=== PATIENT | female | born 2000 | race Caucasian/White ===

== ENCOUNTER 2022-10-22 03:09 | Observation (INO) ==
[2022-10-22 04:12] LABS: Basophils # (auto) 0.07 K/uL (0-0.2); Basophils % (auto) 0.6 %; Eosinophils # (auto) 0.02 K/uL (0-0.50); Eosinophils % (auto) 0.2 %; Hematocrit (blood only) 42.5 % (34.1-44.9); Immature Granulocytes # (auto) 0.03 K/uL (0.00-0.02); Immature Granulocytes % (auto) 0.3 %; Lymphocytes # (auto) 2.23 K/uL (1.2-3.4); Lymphocytes % (auto) 19.2 %; Mean Corpuscular Hemoglobin 31.4 pg (25.0-34.0); Mean Corpuscular Hgb Conc 35.3 g/dL (32.0-36.0); Mean Corpuscular Volume 89.1 fL (80.0-100.0); Mean Platelet Volume 11.9 fL (9.4-12.3); Monocytes # (auto) 0.69 K/uL (0.24-0.82); Monocytes % (auto) 5.9 %; Neutrophils # (auto) 8.57 K/uL (1.4-6.5); Neutrophils % (auto) 73.8 %; Platelet Count 294 K/uL (130-400); RDW Coefficient of Variation 11.1 % (11.5-14.5); RDW Standard Deviation 35.8 fL (36.4-46.3); Red Blood Count 4.77 M/uL (3.93-5.22); White Blood Count 11.61 K/ul (4.8-10.8)
[2022-10-22 04:28] LABS: Pregnancy Test, Serum Negative (Negative)
[2022-10-22 04:46] LABS: Troponin I High Sensitivity < 2.3 pg/ml (0-14)
[2022-10-22] MEDS ORDERED: SODIUM CHLORIDE 0.9% 1000ML 1,000 ML IV ONE ×2 (04:53→06:52)
--- NOTE | 2022-10-22 04:56 | Emergency Department Note ---
History of Present Illness General Chief complaint: Overdose (Accidental) Stated complaint: SHAKING,RACING HEART,POSS TOOK TOO MUCH MEDICATION Time Seen by Provider: 10/22/22 03:58 Source: patient Mode of arrival: EMS Limitations: no limitations History of Present Illness Provider complaint: took extra effexor Maximum Pain Intensity: 6 This is a 21-year-old female presents emergency department due to concern for taking extra Effexor. Patient states she had increased stress because of nee ding to study for an exam and did not have a lot of time. She states she decided to take extra of her Effexor in order to induce ivette so that she could focus to study. She states she also drink 2 energy drinks additionally. She denies any other coingestions. Patient states she has history of bipolar disorder, anxiety, and depression. She denies any thoughts of suicide. Patient states she does see mental health professionals and is prescribed Effexor daily. Home Medications Medication Instructions Recorded Confirmed Type clonidine HCl 0.1 mg tablet 0.1 mg PO DAILY PRN Blood Pressure 10/22/22 10/22/22 History lamotrigine 150 mg tablet 150 mg PO DAILY 10/22/22 10/22/22 History (Lamictal) norgestimate 0.25 mg-ethinyl 1 tab PO DAILY 10/22/22 10/22/22 History estradiol 35 mcg tablet (Sheron) valacyclovir 1 gram tablet 1,000 mg PO DAILY 10/22/22 10/22/22 History (Valtrex) venlafaxine 75 mg tablet 75 mg PO DAILY 10/22/22 10/22/22 History Allergies Allergy/AdvReac Type Severity Reaction Status Date / Time No Known Allergies Allergy Unverified 10/22/22 07:32 Past Med/Surg History Social History Smoking Status: Never smoker Preferred Language: French Feels Safe at Home: Yes Review of Systems A total of 10 systems reviewed and were otherwise negative All systems reviewed & are unremarkable except as noted in HPI & below Physical Exam Vital Signs Vital Signs - 24 hr 10/22/22 03:17 10/22/22 03:38 10/22/22 03:39 Temperature 37.4 C Temperature Source Temporal Artery Scan Pulse Rate 141 H Pulse Rate [Apical] 117 H Respiratory Rate 18 17 Respiratory Effort / Characteristics Non-Labored Spontaneous Respiratory Depth Normal Normal Respiratory Pattern Regular Blood Pressure 130/84 Blood Pressure [Right Arm] 132/85 Blood Pressure Mean 99 Blood Pressure Mean [Right Arm] 100 Pulse Oximetry 98 98 99 Oxygen Delivery Method Room Air Room Air Room Air Sepsis Recent Fever Within 48 Hours No Sepsis New/Unexplained Change in Mental Status N/A Sepsis Action Taken by Nursing No Action Required 10/22/22 06:09 10/22/22 08:31 Temperature Temperature Source Pulse Rate Pulse Rate [Apical] 130 H 107 H Respiratory Rate 12 15 Respiratory Effort / Characteristics Non-Labored Spontaneous Non-Labored Spontaneous Respiratory Depth Normal Normal Respiratory Pattern Regular Blood Pressure Blood Pressure [Right Arm] 123/81 135/95 Blood Pressure Mean Blood Pressure Mean [Right Arm] 95 108 Pulse Oximetry 99 100 Oxygen Delivery Method Room Air Room Air Sepsis Recent Fever Within 48 Hours Sepsis New/Unexplained Change in Mental Status Sepsis Action Taken by Nursing GENERAL: alert, anxiousl appearing, well nourished, no distress, non-toxic EYE EXAM: normal conjunctiva, PERRL and EOM's grossly intact OROPHARYNX: no exudate, no erythema, lips, buccal mucosa, and tongue normal and mucous membranes are moist NECK: supple, no nuchal rigidity, no adenopathy, non-tender LUNGS: Clear to auscultation. Normal chest wall mechanics, no w/r/r HEART: no murmurs, S1 normal and S2 normal ABDOMEN: abdomen soft, non-tender, normo-active bowel sounds, no masses, no rebound or guarding. BACK: Back is symmetrical on inspection and there is no deformity, no midline tenderness, no CVA tenderness. SKIN: no rashes and no bruising UPPER EXTREMITIES: upper extremities are grossly normal. FROM, nml pulses b/l. LOWER EXTREMITIES: No pitting edema. FROM, nml pulses b/l. No evidence of clonus. NEURO EXAM: Normal sensorium, cranial nerves II-XII grossly intact, normal speech, no gross weakness of arms, no gross weakness of legs. No ataxia. Gross sensation intact. Course Course 0500: Discussed with Poison Control. 0936: Patient well-appearing, heart rate improved. Patient admits to increased stress, anxiety, and depression since returning to college from . She states over the course of this last week she has had minimal oral intake due to her increased stress as well as her increased depression. 0945: Case signed out to Dr. Rivera pending mental health evaluation as a precaution. Patient continued to deny SI to myself at bedside. She was given oral potassium repletion. Patient does have local mental health professionals whom she sees. Administered Medications Discontinued Medications Sodium Chloride (Nss 1000ml) 1,000 mls @ 999 mls/hr IV .Q1H1M ONE Stop: 10/22/22 05:53 Last Infusion: 10/22/22 06:20 Dose: 0 mls/hr Documented By: shoe turner: 10/22/22 05:00 Dose: 999 mls/hr Documented By: MED Sodium Chloride (Nss 1000ml) 1,000 mls @ 999 mls/hr IV .Q1H1M ONE Stop: 10/22/22 07:52 Last Infusion: 10/22/22 10:56 Dose: 0 mls/hr Documented By: Admin: 10/22/22 07:42 Dose: 999 mls/hr Documented By: AMS Lorazepam (Lorazepam 1 Mg/1 Ml Syr) 0.5 mg IV NOW STA; Protocol Stop: 10/22/22 06:53 Last Admin: 10/22/22 07:42 Dose: 0.5 mg Documented By: AMS Potassium Chloride (Potassium Chloride Crtab 20 Meq Tabcr) 40 meq PO NOW STA Stop: 10/22/22 09:41 Last Admin: 10/22/22 10:56 Dose: 40 meq Documented By: AMS Medical Decision Making Differential Diagnosis Overdose, toxicologic, infection, hypoglycemia, electrolyte abnormalities, cardiac sources, intracerebral event, neurologic, trauma, as well as other pathologies. Medical Records Attestation: I reviewed the patient's medical records. Home Medications Current Medication List: was personally reviewed by me Laboratory Data Attestation: I reviewed the patient's lab results. Result diagrams: 10/22/22 03:32 10/22/22 03:32 Lab Results 10/22/22 10/22/22 10/22/22 Range/Units 03:32 03:32 03:32 WBC 11.61 H (4.8-10.8) K/ul RBC 4.77 (3.93-5.22) M/uL Hgb 15.0 (12.0-16.0) g/dl Hct 42.5 (34.1-44.9) % MCV 89.1 (80.0-100.0) fL MCH 31.4 (25.0-34.0) pg MCHC 35.3 (32.0-36.0) g/dL RDW Std Deviation 35.8 L (36.4-46.3) fL RDW Coeff of Jordyn 11.1 L (11.5-14.5) % Plt Count 294 (130-400) K/uL MPV 11.9 (9.4-12.3) fL Immature Gran % (Auto) 0.3 % Neut % (Auto) 73.8 % Lymph % (Auto) 19.2 % [place] % (Auto) 5.9 % Eos % (Auto) 0.2 % Baso % (Auto) 0.6 % Neut # (Auto) 8.57 H (1.4-6.5) K/uL Lymph # (Auto) 2.23 (1.2-3.4) K/uL [place] # (Auto) 0.69 (0.24-0.82) K/uL Eos # (Auto) 0.02 (0-0.50) K/uL Baso # (Auto) 0.07 (0-0.2) K/uL Immature Gran # (Auto) 0.03 H (0.00-0.02) K/uL Sodium 136 (136-145) mmol/L Potassium 2.7 L (3.5-5.1) mmol/L Chloride 100 (98-107) mmol/L Carbon Dioxide 23 (21-32) mmol/L Anion Gap 13 H (3-11) BUN 6 (6-23) mg/dl Creatinine 0.84 (0.6-1.2) mg/dl Est Cr Clr Drug Dosing 84.5 ml/min Est GFR ( Amer) 116.0 ml/min Est GFR (Non-Af Amer) 100.1 ml/min BUN/Creatinine Ratio 7.1 L (10-20) Glucose 120 H (70-99(Fasting)) mg/dl Calcium 10.0 (8.5-10.1) mg/dl Magnesium 1.8 (1.7-2.4) mg/dl Total Bilirubin 0.6 (0.2-1.0) mg/dl AST 16 (13-39) U/L ALT 10 (7-52) U/L Alkaline Phosphatase 66 (34-104) U/L Troponin I High Sens < 2.3 (0-14) pg/ml Total Protein 8.1 (6.0-8.3) gm/dl Albumin 5.0 (3.4-5.0) gm/dl Globulin 3.1 (2.5-4.0) gm/dl Albumin/Globulin Ratio 1.6 (0.9-2) TSH (0.300-4.500) uIu/ml Free T4 (0.61-1.60) ng/dl HCG, Qual Negative (Negative) Salicylates (3.0-30) mg/dl Urine Opiates Screen (Neg) Ur Methadone, Qual (Neg) Acetaminophen (10-30) ug/ml Urine Barbiturates (Neg) Ur Phencyclidine (PCP) (Neg) U Amphetamin/Meth Scrn (Neg) MDMA (Ecstasy) Screen (Neg) U Benzodiazepines Scrn (Neg) Ur Cocaine Metabolite (Neg) U Marijuana (THC) Screen (Neg) Ethyl Alcohol mg/dL (<10.0) mg/dl 10/22/22 10/22/22 10/22/22 Range/Units 03:32 04:55 09:03 WBC (4.8-10.8) K/ul RBC (3.93-5.22) M/uL Hgb (12.0-16.0) g/dl Hct (34.1-44.9) % MCV (80.0-100.0) fL MCH (25.0-34.0) pg MCHC (32.0-36.0) g/dL RDW Std Deviation (36.4-46.3) fL RDW Coeff of Jordyn (11.5-14.5) % Plt Count (130-400) K/uL MPV (9.4-12.3) fL Immature Gran % (Auto) % Neut % (Auto) % Lymph % (Auto) % [place] % (Auto) % Eos % (Auto) % Baso % (Auto) % Neut # (Auto) (1.4-6.5) K/uL Lymph # (Auto) (1.2-3.4) K/uL [place] # (Auto) (0.24-0.82) K/uL Eos # (Auto) (0-0.50) K/uL Baso # (Auto) (0-0.2) K/uL Immature Gran # (Auto) (0.00-0.02) K/uL Sodium (136-145) mmol/L Potassium (3.5-5.1) mmol/L Chloride (98-107) mmol/L Carbon Dioxide (21-32) mmol/L Anion Gap (3-11) BUN (6-23) mg/dl Creatinine (0.6-1.2) mg/dl Est Cr Clr Drug Dosing ml/min Est GFR ( Amer) ml/min Est GFR (Non-Af Amer) ml/min BUN/Creatinine Ratio (10-20) Glucose (70-99(Fasting)) mg/dl Calcium (8.5-10.1) mg/dl Magnesium (1.7-2.4) mg/dl Total Bilirubin (0.2-1.0) mg/dl AST (13-39) U/L ALT (7-52) U/L Alkaline Phosphatase (34-104) U/L Troponin I High Sens (0-14) pg/ml Total Protein (6.0-8.3) gm/dl Albumin (3.4-5.0) gm/dl Globulin (2.5-4.0) gm/dl Albumin/Globulin Ratio (0.9-2) TSH 4.733 H (0.300-4.500) uIu/ml Free T4 0.92 (0.61-1.60) ng/dl HCG, Qual (Negative) Salicylates < 3.0 L (3.0-30) mg/dl Urine Opiates Screen Neg (Neg) Ur Methadone, Qual Neg (Neg) Acetaminophen < 3 L (10-30) ug/ml Urine Barbiturates Neg (Neg) Ur Phencyclidine (PCP) Neg (Neg) U Amphetamin/Meth Scrn Neg (Neg) MDMA (Ecstasy) Screen Neg (Neg) U Benzodiazepines Scrn Neg (Neg) Ur Cocaine Metabolite Neg (Neg) U Marijuana (THC) Screen Pos H (Neg) Ethyl Alcohol mg/dL (<10.0) mg/dl 10/22/22 Range/Units 09:03 WBC (4.8-10.8) K/ul RBC (3.93-5.22) M/uL Hgb (12.0-16.0) g/dl Hct (34.1-44.9) % MCV (80.0-100.0) fL MCH (25.0-34.0) pg MCHC (32.0-36.0) g/dL RDW Std Deviation (36.4-46.3) fL RDW Coeff of Jordyn (11.5-14.5) % Plt Count (130-400) K/uL MPV (9.4-12.3) fL Immature Gran % (Auto) % Neut % (Auto) % Lymph % (Auto) % [place] % (Auto) % Eos % (Auto) % Baso % (Auto) % Neut # (Auto) (1.4-6.5) K/uL Lymph # (Auto) (1.2-3.4) K/uL [place] # (Auto) (0.24-0.82) K/uL Eos # (Auto) (0-0.50) K/uL Baso # (Auto) (0-0.2) K/uL Immature Gran # (Auto) (0.00-0.02) K/uL Sodium (136-145) mmol/L Potassium (3.5-5.1) mmol/L Chloride (98-107) mmol/L Carbon Dioxide (21-32) mmol/L Anion Gap (3-11) BUN (6-23) mg/dl Creatinine (0.6-1.2) mg/dl Est Cr Clr Drug Dosing ml/min Est GFR ( Amer) ml/min Est GFR (Non-Af Amer) ml/min BUN/Creatinine Ratio (10-20) Glucose (70-99(Fasting)) mg/dl Calcium (8.5-10.1) mg/dl Magnesium (1.7-2.4) mg/dl Total Bilirubin (0.2-1.0) mg/dl AST (13-39) U/L ALT (7-52) U/L Alkaline Phosphatase (34-104) U/L Troponin I High Sens (0-14) pg/ml Total Protein (6.0-8.3) gm/dl Albumin (3.4-5.0) gm/dl Globulin (2.5-4.0) gm/dl Albumin/Globulin Ratio (0.9-2) TSH (0.300-4.500) uIu/ml Free T4 (0.61-1.60) ng/dl HCG, Qual (Negative) Salicylates (3.0-30) mg/dl Urine Opiates Screen (Neg) Ur Methadone, Qual (Neg) Acetaminophen (10-30) ug/ml Urine Barbiturates (Neg) Ur Phencyclidine (PCP) (Neg) U Amphetamin/Meth Scrn (Neg) MDMA (Ecstasy) Screen (Neg) U Benzodiazepines Scrn (Neg) Ur Cocaine Metabolite (Neg) U Marijuana (THC) Screen (Neg) Ethyl Alcohol mg/dL < 10.0 (<10.0) mg/dl ECG Data Attestation: I personally reviewed and interpreted this ECG as follows: Indication: + toxicologic Rate (beats per minute): 105 Rhythm: + sinus tachycardia ECG Intervals/blocks: + Normal QRS and + Normal QT ECG [place]: + Normal ECG ST segments: + Nonspecific ST abnormalities MDM Narrative An order was placed for continuous cardiac monitoring. The monitor shows a rate of _117_ with _sinus tachycardia_ rhythm. This is a 21-year-old female who presents following an intentional ingestion but not with suicidal ideation. Patient concern for side effects of overdose. Patient found to be tachycardic, anxious appearing and mildly tremulous although otherwise hemodynamically stable. Labs drawn and sent and patient was given 2 L of IV fluids as a precaution and monitored over the course of several hours after discussion with poison control. Patient was given oral potassium repletion. Patient signed out awaiting mental health evaluation as a precaution given unusual circumstances this evening. She denied suicidal ideation to me at bedside on more than one occasion. I do not suspect other coingestions. No evidence of evolving toxidrome specifically serotonin syndrome. Per poison control recommendations, patient monitored through 10 hours postingestion. She had no worsening symptoms or other new or evolving concerns. Impression & Plan Drug overdose, Anxiety, Depression, Hypokalemia Discharge Plan Visit Data Chief Complaint: Overdose (Accidental) Stated Complaint: SHAKING,RACING HEART,POSS TOOK TOO MUCH MEDICATION ED Provider: Reese Rivera Discharge Problem: Drug overdose, Anxiety, Depression, Hypokalemia Patient Disposition: Still a Patient Forms Stand Alone Forms: My [facility] Prescriptions Prescriptions: No Action lamotrigine [Lamictal] 150 mg Tablet 150 mg PO DAILY norgestimate-ethinyl estradiol [Sheron] 0.25-35 mg-mcg Tablet 1 tab PO DAILY clonidine HCl 0.1 mg Tablet 0.1 mg PO DAILY PRN (Reason: Blood Pressure) venlafaxine [Effexor] 75 mg Tablet 75 mg PO DAILY valacyclovir [Valtrex] 1 gram Tablet 1,000 mg PO DAILY Referrals Referrals: PCP,NO [Physician] -
[2022-10-22 05:12] LABS: Alanine Aminotransferase 10 U/L (7-52); Albumin Globulin Ratio 1.6 (0.9-2); Alkaline Phosphatase 66 U/L (34-104); Anion Gap 13 (3-11); Aspartate Aminotransferase 16 U/L (13-39); BUN Creatinine Ratio 7.1 (10-20); Bilirubin,Total 0.6 mg/dl (0.2-1.0); Blood Urea Nitrogen 6 mg/dl (6-23); Carbon Dioxide 23 mmol/L (21-32); Chloride 100 mmol/L (98-107); Creatinine Clr Calc Pharmacy 84.5 ml/min; Est GFR (Non-African American) 100.1 ml/min; Globulin 3.1 gm/dl (2.5-4.0); Glucose 120 mg/dl (70-99(Fasting)); Magnesium 1.8 mg/dl (1.7-2.4); Potassium 2.7 mmol/L (3.5-5.1); Sodium 136 mmol/L (136-145); Total Protein 8.1 gm/dl (6.0-8.3)
[2022-10-22 05:26] LABS: Thyroid Stimulating Hormone 4.733 uIu/ml (0.300-4.500)
[2022-10-22 05:37] LABS: Amphetamines+Metham, Urine Neg (Neg); Barbiturates, Urine Neg (Neg); Benzodiazepine, Urine Neg (Neg); Cocaine, Urine Neg (Neg); MDMA (Ecstacy), Urine Neg (Neg); Methadone, Urine Neg (Neg); Opiate, Urine Neg (Neg); Phencyclidine, Urine Neg (Neg)
[2022-10-22 06:07] LABS: T4 Free Thyroxine 0.92 ng/dl (0.61-1.60)
[2022-10-22] MEDS ORDERED: LORazepam 1 MG/1 ML SYR IV STA (06:52)
[2022-10-22] MEDS ORDERED: POTASSIUM CHLORIDE CRTAB 20 MEQ TABCR PO STA (09:40)
--- NOTE | 2022-10-22 10:06 | Emergency Department Note ---
ED Visit Note Patient is a 21-year-old female who presents the ER as last night between 8:30 PM and 12 AM she took extra doses of her Effexor. She did this to help her study as she has a test coming up. She was seen evaluated by Dr. Castillo. She was medically cleared after discussion with poison control this morning. Currently still waiting for salicylates acetaminophen and alcohol as this was drawn but never ran. It was redrawn. Current plan is for patient to see our psychiatric care managers. Productive present she believes this patient can go home unless something else changes. Patient was signed out to me at the change shift at 10 AM. On my evaluation patient admits to suicidal ideations about a week ago where she gave her medications to her friends to make sure that she did not take extra as she was feeling very depressed and helpless. The depression has continued through to today. She took the extra medication to help her focus and study. She was trying to get through finals and then was going to go inpatient. She is currently agreeable to being admitted and will need to go to the hospitalist for medical clearance as when she sits up her heart rate goes to 140s. She feels very weak and rundown. She denies all other complaints other than feeling very depressed and emotional. Case was discussed with Dr. Miki Baptiste. Patient was evaluated by Claritza from her psychiatric care management team. She agrees the patient needs inpatient treatment. .
[2022-10-22 11:11] LABS: Acetaminophen < 3 ug/ml (10-30); Salicylate < 3.0 mg/dl (3.0-30)
--- NOTE | 2022-10-22 11:43 | History & Physical Report ---
Date of Service October 22, 2022 Assessment & Plan (1) Drug overdose: Plan: Patient overdose as mentioned above with 10-12 significant milligrams Effexor. Poison control feels no immediate antidote is required we will monitor the patient for resolution of her tachycardia provide an additional liter of normal saline with potassium If patient develops QT prolongation consideration of bicarbonate infusion per up-to-date. If patient develops serotonin syndrome treatment of abnormal vital signs should be attempted as well as using benzodiazepines for agitation. If all of this fails consider use of cyproheptadine as an antidote for serotonin syndrome. (2) Depression: Plan: will hold Will Lamictal, Effexor and clonidine at this point time If persistent hypertension continues we will use as needed doses of clonidine or hydralazine (3) Hypokalemia: Plan: Patient potassium 2.7 she is given 40 mg oral potassium. We will include potassium in her IV fluid and likely recheck potassium magnesium now to further determine if additional supplementation is required Plan She had evaluation by psych liaison in the ER tentatively she is agreeable to going voluntarily however she says she does not want to. Still unclear final disposition at this point time History of Present Illness Primary Care Provider: [facility] 21-year-old college female who intentionally took 10 to 1275 mg tablets of Effexor around 9 PM on 10 21 in an attempt to induce ivette so she could study longer. Patient has a history of depression previously has been an inpatient in high school. She takes Lamictal and Effexor for depression she takes clonidine for blood pressure and chronically on Valtrex. Emergency department she is tearful she remains tachycardic this is exertionally tachycardic whenever she sits or moves she says she feels spacey and shaky she has dilated pupils. Talk screen is only positive for marijuana which she denies alcohol is negative acetaminophen is negative salicylates negative. Allergies Allergy/AdvReac Type Severity Reaction Status Date / Time No Known Allergies Allergy Unverified 10/22/22 07:32 Home Medications Medication Instructions Recorded Confirmed Type clonidine HCl 0.1 mg tablet 0.1 mg PO DAILY PRN Blood Pressure 10/22/22 10/22/22 History lamotrigine 150 mg tablet 150 mg PO DAILY 10/22/22 10/22/22 History (Lamictal) norgestimate 0.25 mg-ethinyl 1 tab PO DAILY 10/22/22 10/22/22 History estradiol 35 mcg tablet (Sheron) valacyclovir 1 gram tablet 1,000 mg PO DAILY 10/22/22 10/22/22 History (Valtrex) venlafaxine 75 mg tablet 75 mg PO DAILY 10/22/22 10/22/22 History Past Med/Surg History Social History Smoking Status: Never smoker Preferred Language: [place] Feels Safe at Home: Yes Review of Systems Review of Systems: Mild distress and fatigue no headache, no visual changes no speech or swallowing issues no chest pain, pressure but does have sensation of palpitations no shortness of breath, cough or wheezes no abdominal pain, nausea or vomiting, diarrhea or constipation no dysuria, hematuria or frequency no focal joint pain or swelling no back pain, CVA tenderness or radicular pain no bruising, bleeding or rashes no focal signs of weakness or numbness or altered sensation Patient complains of feeling shaky and anxious Physical Exam Physical Exam: The patient appeared well nourished and normally developed. Vital signs as documented. Pupils are larger than expected but reactive Head exam is normocephalic atraumatic Neck is without JVD, thyromegaly, or carotid bruits. Lungs are clear to auscultation, no focal loss of breath sounds Cardiac exam, Rhythm is tachycardic.. No murmurs, rubs or gallops. Abdominal exam reveals normal bowel sounds, soft non tender, no masses Extremities are nonedematous and both pedal pulses are present Neurologic exam is alert and oriented, no focal loss of strength or sensation there is no objective tremor Skin is without bruises or rashes Psychologically is with concerns for anxiety patient denies suicidality Results & Data Results & Data ([facility]) Vital Signs (Past 12 Hours) Vital Signs Temp Pulse Pulse Resp BP BP Pulse Ox 10/22/22 08:31 107 H 15 135/95 100 10/22/22 06:09 130 H 12 123/81 99 10/22/22 03:39 99 10/22/22 03:38 117 H 17 132/85 98 10/22/22 03:17 99.3 F 141 H 18 130/84 98 O2 Del Method 10/22/22 08:31 Room Air 10/22/22 06:09 Room Air 10/22/22 03:39 Room Air 10/22/22 03:38 Room Air 10/22/22 03:17 Room Air Code Status & VTE Plan VTE Prophylaxis Plan VTE Prophylaxis will be ordered: No Reason for no VTE drug order: Treatment not indicated PG Care Time/CCT Total # of Minutes Spent Total Time Spent with Patient: Total time spent is greater than 50% in coordination of care (as documented) at patient's floor/unit and/or counseling patient: Coding Level of Care Code INT OBSERVATION CARE 50M LVL 2 Diagnoses Drug overdose T50.901A Depression F32.A Hypokalemia E87.6
[2022-10-22] MEDS ORDERED: MAGNESIUM SULFATE / D5W 1 GM/100 ML BAG IV STA (11:44)
[2022-10-22] MEDS ORDERED: NSS + 20MEQ KCL 20 MEQ/1,000 ML BAG IV SCH (11:45)
[2022-10-22] MEDS: POTASSIUM CHLORIDE / WTR 10 MEQ/100 ML PLCT IV SCH ×3 (12:20→15:12)
[2022-10-22] MEDS ORDERED: hydrALAZINE HCL 20 MG/ML VIAL IV PRN (13:22)
[2022-10-22] MEDS ORDERED: ACETAMINOPHEN 325 MG TAB PO PRN (15:42)
[2022-10-22] MEDS ORDERED: ONDANSETRON INJ 2 MG/ML 2 ML VIAL IV PRN (15:42)
[2022-10-22] MEDS ORDERED: ACTIVATED CHARCOAL/SORBITOL 25 GM/120 ML TUBE PO STA (15:42)
[2022-10-22] MEDS ORDERED: ALUMINUM/MAGNESIUM SUSP 30 ML UDC PO PRN (15:42)
--- NOTE | 2022-10-22 16:39 | Electrocardiogram Report ---
Test Reason : Blood Pressure : / mmHG Vent. Rate : 105 BPM Atrial Rate : 105 BPM P-R Int : 164 ms QRS Dur : 082 ms QT Int : 326 ms P-R-T Axes : 059 014 004 degrees QTc Int : 430 ms Poor data quality, interpretation may be adversely affected Sinus tachycardia Possible Left atrial enlargement Nonspecific ST and T wave abnormality Abnormal ECG No previous ECGs available Confirmed by Tyler Tran ([id number]) on 10/22/2022 4:38:44 PM Referred By: REFERRED SELF Confirmed By:Tyler Tran
[2022-10-22 17:25] LABS: BUN Creatinine Ratio 4.5 (10-20); Calcium 9.6 mg/dl (8.5-10.1); Creatinine Clr Calc Pharmacy 105.9 ml/min; Est GFR (African American) 146.7 ml/min; Est GFR (Non-African American) 126.5 ml/min; Magnesium 2.2 mg/dl (1.7-2.4); Potassium 4.3 mmol/L (3.5-5.1)
[2022-10-22] MEDS ORDERED: MELATONIN 3 MG TAB PO ONE (21:16)
[2022-10-22] MEDS ORDERED: cloNIDine HCL 0.1 MG TAB PO ONE ×3 (21:53→23:15)
[2022-10-23 04:50] LABS: Hematocrit (blood only) 41.4 % (34.1-44.9); Hemoglobin 14.3 g/dl (12.0-16.0); Mean Corpuscular Hemoglobin 31.8 pg (25.0-34.0); Mean Corpuscular Hgb Conc 34.5 g/dL (32.0-36.0); Mean Corpuscular Volume 92.2 fL (80.0-100.0); Mean Platelet Volume 11.8 fL (9.4-12.3); Platelet Count 247 K/uL (130-400); RDW Coefficient of Variation 11.6 % (11.5-14.5); RDW Standard Deviation 39.4 fL (36.4-46.3); Red Blood Count 4.49 M/uL (3.93-5.22); White Blood Count 9.09 K/ul (4.8-10.8)
[2022-10-23 05:17] LABS: BUN Creatinine Ratio 6.9 (10-20); Calcium 10.1 mg/dl (8.5-10.1); Creatinine Clr Calc Pharmacy 98.6 ml/min; Est GFR (African American) 139.7 ml/min; Est GFR (Non-African American) 120.6 ml/min
[2022-10-23] MEDS ORDERED: valACYclovir HCL 500 MG TABLET PO SCH (09:00)
[2022-10-23] MEDS ORDERED: NORGESTIMATE/ETHINYL ESTRAD 0.25/0.035MG DSPK PO SCH (09:00)
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
--- NOTE | 2022-10-23 17:48 | Discharge Summary ---
Date of Service October 23, 2022 Admission HPI Per Admitting Provider 21-year-old college female who intentionally took 10 to 1275 mg tablets of Effexor around 9 PM on 10 21 in an attempt to induce ivette so she could study longer. Patient has a history of depression previously has been an inpatient in high school. She takes Lamictal and Effexor for depression she takes clonidine for blood pressure and chronically on Valtrex. Emergency department she is tearful she remains tachycardic this is exertionally tachycardic whenever she sits or moves she says she feels spacey and shaky she has dilated pupils. Talk screen is only positive for marijuana which she denies alcohol is negative acetaminophen is negative salicylates negative. Principal Diagnosis Intentional overdose Discharge Exam The patient appeared stable Vital signs as documented. Lungs are clear to auscultation and appear unlabored Cardiac exam, Rhythm is regular.. No murmurs, rubs or gallops. Abdominal exam reveals normal bowel sounds, soft non tender, no masses Extremities are nonedematous and both pedal pulses are normal. Neurologic exam is alert and oriented, no focal loss of strength or sensation Skin is without bruises or rashes Psychologically is with concerns with depression safety plan in place patient is to follow-up with outpatient counseling patient did not want to go to voluntary inpatient counseling Discharge Data Allergies Allergy/AdvReac Type Severity Reaction Status Date / Time No Known Allergies Allergy Unverified 10/22/22 07:32 Consultations 10/22/22 11:00 ED Decision to Admit Stat 10/22/22 11:38 Consult Psychiatry Stat Hospital Course (1) Drug overdose: Patient overdose as mentioned above with 10-12 significant milligrams Effexor. Poison control recommended monitoring patient's heart rate improved overnight. Psychiatry does not recommend reinstituting Effexor therapy. (2) Depression: Patient be home on Lamictal and clonidine but no additional Effexor (3) Hypokalemia: replete Plan Patient denied going inpatient for psychiatric care Total Time Total Time Spent Total Time Spent (In Minutes): It required greater than 30 minutes to prepare this patient for discharge including a discussion with psychiatric attending on disposition Discharge Plan Discharge Items Patient Disposition: Home - Self-Care Reason For Visit: INTENTIONAL OVERDOSE Discharge Diagnosis: intentional overdose Condition on Discharge: Good Activity: Resume your previous activity Non-emergency contact: Primary Care Provider and Psychiatrist Call non-emergency contact if: your symptoms worsen Follow-up/Referrals: [facility] [Other] (Call this number for extra mental health resources. IOP service.) [facility] [Outside] - 10/29/22 4:00 pm [facility] [Primary Care Provider] - Diet: Regular Addtl Attending Provider Instructions: please follow up with your mental health provider Pending Studies at Discharge: No Stand-Alone Forms: My [facility] [address], Smoking Cessation Medications and DC Order Prescriptions: Continued lamotrigine [Lamictal] 150 mg Tablet 150 mg PO DAILY norgestimate-ethinyl estradiol [Sheron] 0.25-35 mg-mcg Tablet 1 tab PO DAILY clonidine HCl 0.1 mg Tablet 0.1 mg PO DAILY PRN (Reason: Blood Pressure) valacyclovir [Valtrex] 1 gram Tablet 1,000 mg PO DAILY Discontinued venlafaxine [Effexor] 75 mg Tablet 75 mg PO DAILY Discharge Orders: Discharge Order (Routine); Ordered 10/23/22 Ordered By: Miki Myers/Other Patient Handouts: Responding to a Child's Poisoning, Suicide Warning Signs What To Do Admission Data Admit Date/Time: 10/22/22 11:38 Attending Provider: Miki Ocampo Admit Provider: Miki Ocampo Primary Care Provider: [facility] Other Providers: Africa Solano ; Nory Stanley ; Miki Ocampo Other Interventions: Discharge Summary Assessment (RN) Last Done: 10/23/22 14:18 Coding Level of Care Code D/C DAY MANAGEMENT >30 MINS Diagnoses Drug overdose T50.901A Depression F32.A Hypokalemia E87.6
[2022-10-24 09:38] LABS: Marijuana Quant, GCMS Urine 60 ng/mL (<5)
== END 2022-10-23 14:15 | disposition home or self-care (01) ==
LOC: EDINP 03:09 → ED 03:09 → EDINP 15:41

== ENCOUNTER 2024-10-19 08:15 | Inpatient (IN) ==
[2024-10-19] MEDS: MoRPHine SULFATE 4 MG/ML 1 ML CARP\\VIAL IV STA ×2 (09:00→11:29)
[2024-10-19] MEDS: ONDANSETRON INJ 2 MG/ML 2 ML VIAL IV STA (09:01)
[2024-10-19 09:05] LABS: Basophils # (auto) 0.08 K/uL (0.00-0.20); Basophils % (auto) 0.5 %; Eosinophils # (auto) 0.29 K/uL (0.00-0.50); Hematocrit (blood only) 43.1 % (37.0-47.0); Hemoglobin 14.7 g/dl (12.0-16.0); Immature Granulocytes # (auto) 0.07 K/uL (0.01-0.20); Immature Granulocytes % (auto) 0.5 %; Lymphocytes # (auto) 1.44 K/uL (1.20-3.40); Lymphocytes % (auto) 9.8 %; Mean Corpuscular Hemoglobin 31.3 pg (25.0-34.0); Mean Corpuscular Hgb Conc 34.1 g/dL (32.0-36.0); Mean Corpuscular Volume 91.7 fL (80.0-100.0); Mean Platelet Volume 11.5 fL (9.4-12.4); Monocytes # (auto) 0.67 K/uL (0.11-0.59); Monocytes % (auto) 4.5 %; Neutrophils % (auto) 82.7 %; Platelet Count 320 K/uL (130-400); RDW Coefficient of Variation 12.1 % (11.5-14.5); RDW Standard Deviation 40.7 fL (36.4-46.3); White Blood Count 14.75 K/ul (4.8-10.8)
[2024-10-19 09:06] LABS: Appearance Urine Cloudy (Clear); Bacteria Urine Automated 2+ (None Seen); Bilirubin Urine Negative (Negative); Blood Urine 3+ (Negative); Color Urine Yellow; Glucose Urine UA Negative (Negative); Ketones Urine Trace (Negative); Leukocyte Esterase Urine 1+ (Negative); Nitrite Urine Negative (Negative); Protein Urine Trace (Negative); RBC Urine Automated >20 /hpf (0-2); Specific Gravity Urine 1.035 (1.000-1.030); Urobilinogen Urine Negative (Negative); WBC Urine Automated >50 /hpf (0-5); pH Urine 5.5 (4.5-7.5)
[2024-10-19 09:21] LABS: Pregnancy Test, Serum Negative (Negative)
[2024-10-19 09:34] LABS: Albumin Globulin Ratio 1.5 (0.9-2); Albumin Level 4.3 gm/dl (3.4-5.0); BUN Creatinine Ratio 14.5 (10-20); Bilirubin,Total 0.4 mg/dl (0.2-1.0); Calcium 9.6 mg/dl (8.6-10.3); Creatinine Clr Calc Pharmacy 63.4 ml/min; Globulin 2.9 gm/dl (2.5-4.0); Potassium 3.7 mmol/L (3.5-5.1); Total Protein 7.2 gm/dl (6.0-8.3)
[2024-10-19] MEDS: OPTIRAY 320 100ml IV ONE (09:46)
--- NOTE | 2024-10-19 10:05 | CT Scan Report ---
CT OF THE ABDOMEN AND PELVIS WITH CONTRAST CLINICAL HISTORY: Right lower quadrant abdominal pain. COMPARISON STUDY: None. TECHNIQUE: Following IV administration of 94 mL of Optiray, axial images of the abdomen and pelvis we re obtained from the lung bases to the proximal femurs. Images were reviewed in the axial, sagittal, and coronal planes. IV contrast was administered without complication. Automated exposure control wa s utilized for the study. A dose lowering technique was utilized adhering to the principles of ALARA . CT DOSE: 452.48 mGy.cm FINDINGS: Lung bases are unremarkable. A 5 mm distal right ureteral calculus results in moderate hydr onephrosis with delayed nephrogram and trace perinephric and periureteral fluid. A few right lower po le renal calculi measure up to 3 mm. There is no left hydronephrosis. No left renal calculi are ident ified although sensitivity is diminished on this contrast enhanced exam. Liver, spleen, adrenal gland s and pancreas are unremarkable. The appendix is normal. There is trace fluid within the pelvis. The caliber and wall thickness of small and large bowel are normal. Major vasculature is patent. No lymph adenopathy. IMPRESSION: 1. 5 mm distal right ureteral calculus results in moderate hydronephrosis with delayed nephrogram. 2. Right nephrolithiasis. 3. Normal appendix. No bowel obstruction. No bowel wall thickening. 4. Trace fluid within the pelvis, likely physiologic. ACT 112: Negative or not required by law. Electronically signed by: Cody Burnette M.D. 10/19/2024 10:04 AM
[2024-10-19] MEDS: HYDROmorphone INJ 0.5 MG/0.5 ML SYR IV STA (10:26)
--- NOTE | 2024-10-19 11:45 | Urology Consultation ---
Date of Consultation October 19, 2024 Assessment & Plan (1) Right distal ureteral calculus: (2) Hydronephrosis, right: 23-year-old female presenting to the emergency department today for evaluation of right lower abdominal pain. CT imaging shows an obstructing 5 mm distal right ureteral calculus and her urinalysis is concerning for UTI. Urology is consulted for right ureteral stone. Patient afebrile, hemodynamically stable Labs reviewedcreatinine 1.10, WBC 14.75 Urinalysis is suspicious for infection with 1+ LE, >50 WBC, 2+ bacteria Urine culture pending Reviewed and discussed her CT scan Given white count and concern for UTI in the context of an obstructing right ureteral stone, discussed intervention with right ureteral stent placement We discussed that her stone would be treated in the future Ureteral stents were discussed in detail Proceed to the OR for cystoscopy, retrograde pyelogram and right ureteral stent placement Risk and benefits of procedure to be reviewed with patient by Dr. Hughes Recommend start broad-spectrum antibiotics and narrow per sensitivity data when available Keep NPO for procedure Supervising Physician Co-Signing Physician Notes Discussed patient with HEATH. Agree with plan. Discussed with patient that due to concerning urinalysis for infection, recommend only placing a stent and returning for a second procedure to treat this stone. To the OR for cystoscopy, right retrograde pyelogram right ureteral stent placement. History of Present Illness History of Present Illness This is a 23-year-old female with past medical history of bipolar disorder, anxiety and depression who presented to the emergency department today for evaluation of sudden onset of right lower abdominal pain that started early this morning. Workup in the emergency department included CT abdomen and pelvis with contrast which demonstrated a 5 mm distal right ureteral stone resulting in moderate hydronephrosis with delayed nephrogram. A few right renal calculi measuring up to 3 mm. Labs showed creatinine 1.10, WBC 14.75, hemoglobin 14.7. Urinalysis showed 3+ blood, 1+ leukocyte esterase, >50 WBC, >20 RBC, 11-20 epit helials and 2+ bacteria. Urine was negative. In ED, she is afebrile and hemodynamically stable. Patient seen and examined at bedside. Her boyfriend is present. She continues to have right lower abdominal pain and nausea. Voiding spontaneously. No dysuria or hematuria. No fever or chills. No prior history of kidney stones. No family history of stones. She reports she has not eaten today, a sip of water at 6 AM. Allergies Allergy/AdvReac Type Severity Reaction Status Date / Time mussels Allergy Vomiting Verified 10/19/24 13:31 Home Medications Medication Instructions Recorded Confirmed Type clonidine HCl 0.1 mg tablet 0.1 mg PO DAILY 10/22/22 10/19/24 History norgestimate 0.25 mg-ethinyl 1 tab PO DAILY 10/22/22 10/19/24 History estradiol 35 mcg tablet (Sheron) dextroamphetamine-amphetamine ER 10 mg PO DAILY 10/19/24 10/19/24 History 10 mg 24hr capsule,extend release quetiapine 50 mg tablet 50 mg PO DAILY 10/19/24 10/19/24 History Patient History Medical History (Updated 10/19/24 @ 13:34 by Shawanda Jean Baptiste RN) ADHD Surgical History (Updated 10/19/24 @ 13:33 by Shawanda Jean Baptiste RN) History of placement of ear tubes Sharon teeth removed History of tonsillectomy and adenoidectomy Social History Smoking Status: Former smoker Tobacco Type: Cigarettes Hx Alcohol Use: Yes Alcohol type: wine Hx Substance Use: No Preferred Language: French Communication Ability: Effective Control Panel Tester Required: No Beliefs That Will Affect Care: None Current Living Situation: Other Current Living Situation Comment: chucky Feels Safe at Home: Yes Assistive Devices: Glasses Review of Systems Review of Systems: All systems reviewed & are unremarkable except as noted in HPI & below Physical Exam Constitutional: well developed and well nourished; no acute distress Respiratory: normal respiratory effort; no respiratory distress and no labored breathing Gastrointestinal (Abdomen): Inspection/Auscultation: abdomen normal to inspection Musculoskeletal: Head/Neck/Chest: normocephalic Neurologic: moves all extremities and awake Psychiatric: Orientation: alert and oriented x 3 Results & Data Vital Signs (Past 12 Hours) Vital Signs Temp Pulse Pulse Resp BP BP Pulse Ox 10/19/24 10:32 66 18 125/78 96 10/19/24 09:12 57 L 10/19/24 08:19 36.4 C L 68 20 121/85 99 O2 Del Method 10/19/24 10:32 Room Air 10/19/24 09:12 10/19/24 08:19 Room Air PG Care Time/CCT Total # of Minutes Spent Total Time Spent with Patient: Total time spent is greater than 50% in coordination of care (as documented) at patient's floor/unit and/or counseling patient: Coding Level of Care Code 67493 IN/OBS CONSULT LVL 4,60M Diagnoses Right distal ureteral calculus N20.1 Hydronephrosis, right N13.30
[2024-10-19] MEDS ORDERED: TAMSULOSIN HCL 0.4 MG CAP PO STA (12:26)
--- NOTE | 2024-10-19 12:31 | History & Physical Report ---
Date of Service October 19, 2024 Assessment & Plan (1) Right distal ureteral calculus: Plan: Acute onset of RUQ abdominal/flank pain that woke her from sleep at 4 AM on 10/19 A/P CT revealed 5 mm distal right ureteral calculus with moderate hydronephrosis Urology consult appreciated Plan for stent placement on the evening of 10/[address] Hughes N.p.o. until then Acetaminophen and Toradol as needed for pain IV antiemetics PRN Tamsulosin 0.4 mg x 1 Urine strainer (2) UTI (urinary tract infection): Plan: UA positive on arrival with some concern for infected stone Leukocytosis at 14.75 with a neutrophil predominance No prior UCx on record Ceftriaxone 2000 mg IV q24h Follow current UCx Follow a.m. labs (3) Bipolar disorder: Plan: Patient reports she no longer takes lamotrigine (4) Anxiety: Plan: Continue home medications (5) Depression: (6) Hydronephrosis, right: Plan Disposition: Admit to [facility] Full code N.p.o. prior to stent, then advance to regular diet VTE PPx: Low risk History of Present Illness Chief Complaint: Abdominal/flank pain Primary Care Provider: [facility] Belia is a 23-year-old female with PMH of anxiety, depression, drug overdose, and bipolar disorder. She presented on 10/19 for right lower quadrant abdominal pain that began around 4 AM. The pain woke her from sleep this morning. She reports it is in the RLQ of her abdomen with radiation around the flank. No radiation to the lower back. She rates the pain 9/10 at worst, and 2/10 after receiving pain medicine in the ED. Deep breaths initially made the pain worse, but she reports this has subsided. She characterizes the pain as dull at baseline with intermittent sharpness. No prior history of kidney stones. Patient took 2 ibuprofen (200 mg) prior to coming in. No recent change in diet, but she did eat different foods for Thanksgiving recently. She reports she does not drink enough water daily. She does have a history of UTIs, but has not had one since she was much younger. Additional symptoms include nausea; no vomiting. No bloo d in the urine or burning with urination. She does report that she was not feeling well last night, but does not believe she had a fever. She did not take her regular morning medicines today; no recent change in medications, however she says she no longer takes lamotrigine. No prior history of abdominal surgeries; patient still has appendix and gallbladder. She has no family history of kidney stones to her knowledge. She denies a chance of ; reports that she is currently on her menstrual period. Patient reports that she did have a glass of wine last night. She denies smoking, tobacco use, recreational drug use. NKDA; patient denies penicillin allergy. Patient is mildly hypertensive at 143/95 at time of admission; vitals otherwise stable. ED course: Ceftriaxone 2000 mg IV Morphine sulfate 4 mg IV x 2 Hydromorphone 0.5 mg IV Zofran 4 mg IV ROS: Patient endorses lightheadedness from pain, RLQ abdominal pain, and nausea. Patient denies fever, chills, night-sweats, chest pain, chest palpitations, SOB, cough, vomiting, diarrhea, blood in the urine, burning with urination, or change in urinary habits. Allergies Allergy/AdvReac Type Severity Reaction Status Date / Time No Known Allergies Allergy Unverified 10/22/22 07:32 Home Medications Medication Instructions Recorded Confirmed Type clonidine HCl 0.1 mg tablet 0.1 mg PO DAILY 10/22/22 10/19/24 History lamotrigine 150 mg tablet 150 mg PO BID 10/22/22 10/19/24 History (Lamictal) norgestimate 0.25 mg-ethinyl 1 tab PO DAILY 10/22/22 10/19/24 History estradiol 35 mcg tablet (Sheron) dextroamphetamine-amphetamine ER 10 mg PO DAILY 10/19/24 10/19/24 History 10 mg 24hr capsule,extend release lamotrigine 100 mg tablet 100 mg PO BID 10/19/24 10/19/24 History quetiapine 50 mg tablet 50 mg PO DAILY 10/19/24 10/19/24 History Past Med/Surg History Problem List (Updated 10/19/24 @ 12:34 by Riley Zarate PA-C) UTI (urinary tract infection) Hydronephrosis, right Right distal ureteral calculus Bipolar disorder Hypokalemia (Acute) Drug overdose (Acute) Anxiety (Acute) Depression (Acute) Social History Smoking Status: Never smoker Hx Alcohol Use: No Hx Substance Use: No Preferred Language: Belgian Communication Ability: Effective Heavy Equipment Technician Required: No Beliefs That Will Affect Care: None Current Living Situation: Alone Feels Safe at Home: Yes Assistive Devices: Glasses Review of Systems Review of Systems: See HPI above Physical Exam Physical Exam: General: no acute distress; pleasant affect; non-toxic appearing; well- nourished; cooperative; SpO2 96% on RA HEENT: normocephalic, atraumatic; no scleral icterus; PERRLA; vision and hearing grossly intact Neck: supple; trachea midline Skin: warm, dry without signs of tenting; no cyanosis; no rashes, bruising, lesions, or erythema noted CV: chest wall NTP; RRR; S1/S2 normal; no murmurs/rubs/gallops; pulses intact and symmetric at radial, DP, and PT Lungs: no acute respiratory distress; symmetrical chest wall expansion; clear breath sounds across all lung brown w/o adventitious sounds; no wheezing ABD: Soft; RLQ and right flank are tender to palpation; RUQ, LUQ, and LLQ are NTP; BS present; no rebound/guarding; no distention Back: No rashes or bruising noted; positive right-sided CVA tenderness MSK: no tics or fasciculations; no edema noted in the LEs b/l, nonerythematous Neuro: A&Ox3; normal mood and affect; fluent speech; no focal deficits; sensation grossly intact in the LEs b/l Results & Data Results & Data Vital Signs (Past 12 Hours) Vital Signs Temp Pulse Pulse Resp BP BP Pulse Ox 10/19/24 12:00 76 18 143/95 H 96 10/19/24 10:32 66 18 125/78 96 10/19/24 09:12 57 L 10/19/24 08:19 36.4 C L 68 20 121/85 99 O2 Del Method 10/19/24 12:00 Room Air 10/19/24 10:32 Room Air 10/19/24 09:12 10/19/24 08:19 Room Air Laboratory Results Abnormal lab results 10/19/24 Range/Units 08:30 WBC 14.75 H (4.8-10.8) K/ul Neut # (Auto) 12.20 H (1.40-6.50) K/uL [place] # (Auto) 0.67 H (0.11-0.59) K/uL Glucose 108 H (70-99(Fasting)) mg/dl Urine Appearance Cloudy A (Clear) Ur Specific [place] 1.035 H (1.000-1.030) Urine Protein Trace H (Negative) Urine Ketones Trace H (Negative) Urine Blood 3+ H (Negative) Ur Leukocyte Esterase 1+ H (Negative) Urine WBC (Auto) >50 H (0-5) /hpf Urine RBC (Auto) >20 H (0-2) /hpf U Hyaline Cast (Auto) 3-5 H (0-2) /lpf U Epithel Cells (Auto) 11-20 H (0-2) /hpf Urine Bacteria (Auto) 2+ H (None Seen) Diagnostic Findings Abdomen/Pelvis CT 10/19/24 08:48 CT OF THE ABDOMEN AND PELVIS WITH CONTRAST CLINICAL HISTORY: Right lower quadrant abdominal pain. COMPARISON STUDY: None. TECHNIQUE: Following IV administration of 94 mL of Optiray, axial images of the abdomen and pelvis were obtained from the lung bases to the proximal femurs. Images were reviewed in the axial, sagittal, and coronal planes. IV contrast was administered without complication. Automated exposure control was utilized for the study. A dose lowering technique was utilized adhering to the principles of ALARA. CT DOSE: 452.48 mGy.cm FINDINGS: Lung bases are unremarkable. A 5 mm distal right ureteral calculus results in moderate hydronephrosis with delayed nephrogram and trace perinephric and periureteral fluid. A few right lower pole renal calculi measure up to 3 mm. There is no left hydronephrosis. No left renal calculi are identified although sensitivity is diminished on this contrast enhanced exam. Liver, spleen, adrenal glands and pancreas are unremarkable. The appendix is normal. There is trace fluid within the pelvis. The caliber and wall thickness of small and large bowel are normal. Major vasculature is patent. No lymphadenopathy. IMPRESSION: 1. 5 mm distal right ureteral calculus results in moderate hydronephrosis with delayed nephrogram. 2. Right nephrolithiasis. 3. Normal appendix. No bowel obstruction. No bowel wall thickening. 4. Trace fluid within the pelvis, likely physiologic. ACT 112: Negative or not required by law. Electronically signed by: Cody Burnette M.D. 10/19/2024 10:04 AM Code Status & VTE Plan Code Status Full code VTE Prophylaxis Plan VTE Prophylaxis will be ordered: Yes PG Care Time/CCT Total # of Minutes Spent Total Time Spent with Patient: Total time spent is greater than 50% in coordination of care (as documented) at patient's floor/unit and/or counseling patient: Coding [place] [address] INT INP/OBS CARE 2/55MIN Patient Type Established History Comprehensive Exam Comprehensive Medical Decision Making Moderate Complexity Diagnoses Right distal ureteral calculus N20.1 UTI (urinary tract infection) N39.0 Bipolar disorder F31.9 Anxiety F41.9 Depression F32.A Hydronephrosis, right N13.30
[2024-10-19] MEDS ORDERED: DEXAMETHASONE SOD INJ 4 MG/ML VIAL ONE (12:50)
[2024-10-19] MEDS ORDERED: fentaNYL citrate PF 100 MCG/2 ML VIAL ONE (12:50)
[2024-10-19] MEDS ORDERED: ONDANSETRON INJ 2 MG/ML 2 ML VIAL ONE (12:50)
[2024-10-19] MEDS ORDERED: MIDAZOLAM HCL 1 MG/ML 2ML VIAL ONE (12:50)
[2024-10-19] MEDS ORDERED: PROPOFOL IV EMULSION 10 MG/ML 20 ML VIAL IV ONE (12:50)
[2024-10-19] MEDS ORDERED: LIDOCAINE 2% 2 ML VIAL/AMP(20MG/ML) INFIL ONE (12:50)
[2024-10-19] MEDS ORDERED: GLYCOPYRROLATE 0.2 MG/ML VIAL ONE (12:51)
[2024-10-19] MEDS: cefTRIAXone SODIUM 2,000 MG/50 ML BAG IV STA (13:10)
[2024-10-19] MEDS: KETOROLAC TROMETHAMINE 15 MG/ML VIAL IV ONE (13:10)
[2024-10-19] MEDS: KETOROLAC TROMETHAMINE 15 MG/ML VIAL IV STA (13:10)
[2024-10-19] MEDS: SODIUM CHLORIDE 0.9% 1,000 ML IV SCH (13:48)
--- NOTE | 2024-10-19 14:10 | Anesthesiology Consultation ---
Date of Service October 19, 2024 Assessment & Plan Chart Review Chart Review: Acceptable Risk for Surgery and Patient NOT seen in Pre Admission Testing Consults Requested none History Surgery Operation Date: 10/19/24 19:30 Proposed Procedures p Cystoscopy, Right Stent Placement - Joni Hughes MD Height/Weight Height: 5 ft 2 in Weight: 55.9 kg Allergies Allergy/AdvReac Type Severity Reaction Status Date / Time mussels Allergy Vomiting Verified 10/19/24 13:31 Medications Home Medications Medication Instructions Recorded Confirmed Last Taken clonidine HCl 0.1 mg tablet 0.1 mg PO DAILY 10/22/22 10/19/24 10/21/22 norgestimate 0.25 mg-ethinyl 1 tab PO DAILY 10/22/22 10/19/24 10/21/22 estradiol 35 mcg tablet (Sheron) dextroamphetamine-amphetamine ER 10 mg PO DAILY 10/19/24 10/19/24 Unknown 10 mg 24hr capsule,extend release quetiapine 50 mg tablet 50 mg PO DAILY 10/19/24 10/19/24 Unknown Active Medications Generic Name Dose Route Start Last Admin Trade Name Freq PRN Reason Stop Dose Admin Sodium Chloride 1,000 mls @ 15 mls/hr 10/19/24 14:00 10/19/24 13:50 Nss IV 10/20/24 13:59 0 mls/hr .Q24H PHI Infusion NPO Date Last Intake of Fluids: 10/19/24 Time Last Intake of Fluids: 06:00 Last Intake of Fluids Comment: water Date Last Intake of Solids: 10/18/24 Time Last Intake of Solids: 19:00 Past Medical History Medical History (Updated 10/19/24 @ 13:34 by Shawanda Jean Baptiste RN) ADHD Past Surgical History Surgical History (Updated 10/19/24 @ 13:33 by Shawanda Jean Baptiste RN) History of placement of ear tubes [place] teeth removed History of tonsillectomy and adenoidectomy Social History Smoking Status: Former smoker Hx Alcohol Use: Yes Alcohol type: wine alcohol intake frequency: a few times a week Hx Substance Use: No substance use type: does not use Physical Exam Vital Signs Last Vital Signs Temp 36.4 C L 10/19/24 13:34 Pulse 83 10/19/24 13:34 Resp 20 10/19/24 13:34 BP 118/79 10/19/24 13:34 Pulse Ox 95 10/19/24 13:34 O2 Del Method Room Air 10/19/24 13:34 Testing Laboratory Results 10/19/24 08:30 10/19/24 08:30 Urine Color Yellow 10/19/24 08:30 Urine Appearance Cloudy (Clear) A 10/19/24 08:30 Urine pH 5.5 (4.5-7.5) 10/19/24 08:30 Ur Specific [place] 1.035 (1.000-1.030) H 10/19/24 08:30 Urine Protein Trace (Negative) H 10/19/24 08:30 Urine Glucose (UA) Negative (Negative) 10/19/24 08:30 Urine Ketones Trace (Negative) H 10/19/24 08:30 Urine Nitrite Negative (Negative) 10/19/24 08:30 Ur Leukocyte Esterase 1+ (Negative) H 10/19/24 08:30 Urine WBC (Auto) >50 /hpf (0-5) H 10/19/24 08:30 Urine RBC (Auto) >20 /hpf (0-2) H 10/19/24 08:30 U Hyaline Cast (Auto) 3-5 /lpf (0-2) H 10/19/24 08:30 U Epithel Cells (Auto) 11-20 /hpf (0-2) H 10/19/24 08:30 Urine Bacteria (Auto) 2+ (None Seen) H 10/19/24 08:30
[2024-10-19] MEDS ORDERED: KETAMINE HCL 10MG/ML SYR ONE (14:22)
[2024-10-19] MEDS: DIATRIZOATE MEGLUMINE 30% 100ML VIAL INSTIL PRN (14:38)
--- NOTE | 2024-10-19 14:43 | Operative Report ---
PG Post Operative Report Pre & Post Diagnosis Operation Date: 10/19/24 19:30 Pre-Op Diagnosis: Right Ureteral Calculus Post-Op Diagnosis: Right Ureteral Calculus I identified the patient and participated in the time-out.: Yes Procedure Operation Date: 10/19/24 19:30 Actual Procedures p Cystoscopy, right retrograde pyelogram with radiograph interpretation right Stent Placement(Right) - Joni Hughes MD Surgeon Joni Hughes MD Turpentiner None Estimated Blood Loss 0 Findings See Below Mild right hydronephrosis. Stent in appropriate position Specimens None Drains 6 Colombian by 24 cm right ureteral stent Anesthesia Type MAC Complications none Indications 23-year-old female with a right ureteral calculus causing obstruction concern for UTI Description of Procedure After informed consent was obtained, the patient was transported operative suite. MAC anesthesia was induced. The patient was placed in dorsolithotomy position prepped and draped in a sterile fashion. They received preoperative ceftriaxone for antibiotic prophylaxis. An appropriate surgical timeout was performed. A 22 Colombian rigid scope was inserted per urethra into the bladder. Arcos cystoscopy revealed no stones or lesions. I turned my attention the right ureteral orifice and intubated this with a 5 [place]ian open-ended catheter. A right retrograde pyelogram was shot which showed mild to moderate hydronephrosis. A sensor wire was advanced into the kidney and confirmed fluoroscopically. A 6 Colombian by 24 cm right ureteral stent was deployed with a good proximal coil in the renal pelvis and a good distal coil noted in the bladder, confirmed fluoroscopically and under direct visualization, respectively. The bladder was emptied and the scope was removed. This conclude d the end of the case. All counts were correct at the end of the case. I was present, scrubbed, and actively participated for the entirety of the procedure. I attest to the content of the Intraoperative Record and any orders documented therein. Any exceptions are noted below.
--- NOTE | 2024-10-19 15:04 | Anesthesiology Progress Note ---
Date of Service October 19, 2024 Anesthesia Post Procedure Vital Signs Vital Signs: Temp Pulse Pulse Resp BP BP Pulse Ox 10/19/24 14:55 69 18 109/89 99 10/19/24 14:47 36.4 C L 115 H 17 110/93 97 10/19/24 13:34 36.4 C L 83 20 118/79 95 10/19/24 13:17 71 18 115/77 98 10/19/24 12:00 76 18 143/95 H 96 10/19/24 10:32 66 18 125/78 96 10/19/24 09:12 57 L 10/19/24 08:19 36.4 C L 68 20 121/85 99 O2 Del Method O2 Flow Rate 10/19/24 14:55 Nasal Cannula 2 10/19/24 14:47 Nasal Cannula 2 10/19/24 13:34 Room Air 10/19/24 13:17 Room Air 10/19/24 12:00 Room Air 10/19/24 10:32 Room Air 10/19/24 09:12 10/19/24 08:19 Room Air Pain Intensity Right Lower Abdomen: Pain Intensity: 2 Transfer of Care Handoff Completed per policy Notes Mental Status: alert / awake / arousable Patient Amnestic to Procedure: Yes Nausea / Vomiting: adequately controlled Pain: adequately controlled Airway Patency, RR, SpO2: stable & adequate BP & HR: stable & adequate Hydration State: stable & adequate Anesthetic Complications: no major complications apparent and Pt Satisfied with anesthetic care
[2024-10-19 15:17] VITALS: TEMP 97.9
--- NOTE | 2024-10-19 15:31 | Emergency Department Note ---
ED Provider Note History of Present Illness Chief Complaint: Abdominal Pain Stated Complaint: SEVERE LOWER RT ABD PAIN Time Seen by Provider: 10/19/24 08:30 23-year-old female who presents the emergency department with complaint of severe right lower quadrant abdominal pain that woke her up around 4 AM this morning. The patient reports that the pain seems to be worse with deep breathing and movement. The patient denies any preceding urinary symptoms, diarrhea or constipation. Patient reports that she is on control, and has not had a period until recently which has since finished last week. She denies . Patient reports nausea as well, rating her discomfort a 9 out of 10 that she reports is a rather constant pain with occasional waves of discomfort. Home Medications Medication Instructions Recorded Confirmed Type clonidine HCl 0.1 mg tablet 0.1 mg PO DAILY 10/22/22 10/19/24 History norgestimate 0.25 mg-ethinyl 1 tab PO DAILY 10/22/22 10/19/24 History estradiol 35 mcg tablet (Sheron) dextroamphetamine-amphetamine ER 10 mg PO DAILY 10/19/24 10/19/24 History 10 mg 24hr capsule,extend release oxybutynin chloride 5 mg 5 mg PO DAILY #30 tabs 10/19/24 Rx tablet,extended release 24 hr oxycodone 5 mg tablet 5 mg PO Q6H PRN pain #10 tabs 10/19/24 Rx quetiapine 50 mg tablet 50 mg PO DAILY 10/19/24 10/19/24 History tamsulosin 0.4 mg capsule (Flomax) 0.4 mg PO DAILY #30 caps 10/19/24 Rx Allergies Allergy/AdvReac Type Severity Reaction Status Date / Time mussels Allergy Vomiting Verified 10/19/24 13:31 Past Med/Surg History Problem List (Updated 10/19/24 @ 15:33 by Jorge Luis Koch) Hydronephrosis with obstructing calculus (Acute) Right nephrolithiasis (Acute) Right distal ureteral calculus (Acute) UTI (urinary tract infection) Hydronephrosis, right Right distal ureteral calculus Hypokalemia (Acute) Depression (Acute) Medical History Bipolar disorder Anxiety Drug overdose ADHD Surgical History History of placement of ear tubes [place] teeth removed History of tonsillectomy and adenoidectomy Social History Smoking Status: Former smoker Tobacco Type: Cigarettes Hx Alcohol Use: Yes Alcohol type: wine Hx Substance Use: No Preferred Language: Irish Communication Ability: Effective Garbage Collector Required: No Beliefs That Will Affect Care: None Current Living Situation: Other Current Living Situation Comment: roomates Feels Safe at Home: Yes Assistive Devices: Glasses Physical Exam Vital Signs Vital Signs - 24 hr 10/19/24 08:19 10/19/24 08:25 10/19/24 09:12 Temperature 36.4 C L Temperature Source Temporal Artery Scan Pulse Rate 68 57 L Pulse Rate [Apical] Pulse Rhythm [Apical] Respiratory Rate 20 Respiratory Effort / Characteristics Non-Labored Spontaneous Non-Labored Respiratory Depth Normal Normal Respiratory Pattern Blood Pressure 121/85 Blood Pressure [Right Arm] Blood Pressure Mean 97 Blood Pressure Mean [Right Arm] Blood Pressure Position [Right Arm] Pulse Oximetry 99 Oxygen Delivery Method Room Air Oxygen Flow Rate Sepsis Recent Fever Within 48 Hours No Sepsis New/Unexplained Change in Mental Status N/A Sepsis Action Taken by Nursing No Action Required 10/19/24 10:32 10/19/24 12:00 10/19/24 13:17 Temperature Temperature Source Pulse Rate 71 Pulse Rate [Apical] 66 76 Pulse Rhythm [Apical] Respiratory Rate 18 18 18 Respiratory Effort / Characteristics Non-Labored Respiratory Depth Normal Normal Respiratory Pattern Blood Pressure 115/77 Blood Pressure [Right Arm] 125/78 143/95 H Blood Pressure Mean Blood Pressure Mean [Right Arm] 93 111 Blood Pressure Position [Right Arm] Pulse Oximetry 96 96 98 Oxygen Delivery Method Room Air Room Air Room Air Oxygen Flow Rate Sepsis Recent Fever Within 48 Hours Sepsis New/Unexplained Change in Mental Status Sepsis Action Taken by Nursing 10/19/24 13:34 10/19/24 14:47 10/19/24 14:55 Temperature 36.4 C L 36.4 C L Temperature Source Oral Temporal Artery Scan Pulse Rate Pulse Rate [Apical] 83 115 H 69 Pulse Rhythm [Apical] Regular Regular Respiratory Rate 20 17 18 Respiratory Effort / Characteristics Non-Labored Spontaneous Non-Labored Spontaneous Non-Labored Spontaneous Respiratory Depth Normal Normal Normal Respiratory Pattern Regular Regular Regular Blood Pressure Blood Pressure [Right Arm] 118/79 110/93 109/89 Blood Pressure Mean Blood Pressure Mean [Right Arm] 92 98 95 Blood Pressure Position [Right Arm] Semi-fowlers Lying Lying Pulse Oximetry 95 97 99 Oxygen Delivery Method Room Air Nasal Cannula Nasal Cannula Oxygen Flow Rate 2 2 Sepsis Recent Fever Within 48 Hours Sepsis New/Unexplained Change in Mental Status Sepsis Action Taken by Nursing 10/19/24 15:05 10/19/24 15:15 Temperature 36.6 C Temperature Source Oral Pulse Rate Pulse Rate [Apical] 73 77 Pulse Rhythm [Apical] Regular Regular Respiratory Rate 12 18 Respiratory Effort / Characteristics Non-Labored Spontaneous Non-Labored Spontaneous Respiratory Depth Normal Normal Respiratory Pattern Regular Regular Blood Pressure Blood Pressure [Right Arm] 107/83 108/72 Blood Pressure Mean Blood Pressure Mean [Right Arm] 91 84 Blood Pressure Position [Right Arm] Lying Lying Pulse Oximetry 95 95 Oxygen Delivery Method Room Air Room Air Oxygen Flow Rate Sepsis Recent Fever Within 48 Hours Sepsis New/Unexplained Change in Mental Status Sepsis Action Taken by Nursing CONSTITUTIONAL: Healthy and well nourished. Patient appears in moderate to severe discomfort. HEENT: Normocephalic, atraumatic. Pupils equal, round and reactive. Mucous membranes are moist. No scleral icterus or conjunctival injection. NECK: Full active range of motion without discomfort. LYMPHATICS: No cervical chain adenopathy. RESPIRATORY: Clear to auscultation bilaterally with no wheezing, crackles, rhonchi or stridor. CARDIOVASCULAR: Regular rate and rhythm with no murmurs, rubs or gallops. GASTROINTESTINAL: Bowel sounds present in all quadrants. Patient has a positive McBurney's point tenderness and mild Rovsing sign. Positive heeltap. Mildly positive psoas and obturator sign as well. Negative CVA tenderness. No abdominal rigidity, guarding or rebound. MUSCULOSKELETAL: Full range of motion of all joints without discomfort. INTEGUMENTARY: No rash or other significant dermatologic conditions noted. HEMATOLOGIC: No ecchymosis or petechiae. PSYCHIATRIC: Positive affect. NEUROLOGIC: No focal neurologic deficits noted. Course Course Patient history and physical exam were performed. Nurses notes reviewed. Vital signs are reviewed. IV access was established, and labs are drawn. The patient was administered IV morphine and Zofran for pain and nausea. Review of labs shows a mildly elevated white count with neutrophilic shift and no bandemia. CMP shows a normal creatinine and other electrolytes. Serum was negative. Urinalysis shows moderate urine contamination with 3+ hematuria. Negative nitrites. 1+ leukocyte esterase and 2+ bacteria are noted. Prior to imaging, the patient did request something stronger for pain, and was administered IV Dilaudid. Noncontrast CT of the abdomen and pelvis showed a 5 mm distal right ureteral calculus with moderate hydroureteronephrosis. No appendicitis, bowel obstruction or abdominal free air was noted. Findings were discussed with the patient. Because of a questionable UTI in the presence of a 5 mm distal right ureteral calculus, I did reach out to [facility], and spoke with MADISYN Norman who welcomed return phone call if I was unable to adequately control her pain. At that point, they would consider placing a ureteral stent. Patient was in agreement with this plan. She was administered additional IV morphine with poor pain control. At this point, I did recontact urology, who did come to the emergency department and suggested ureteral stent placement. They were uncertain as to when the stent could be inserted, therefore they recommended that I discussed the case with our [facility] Hospitalist service. Patient was administered additional IV Toradol. The case was discussed with Dr. Vergara. Please see urology and hospitalist dictations for further treatment and final disposition. Administered Medications Diatrizoate Meglumine (Diatrizoate Meglumine 30% 100ml Vial) 5 ml INSTIL UD PRN PRN Reason: Radiology Use Stop: 10/23/24 14:37 Last Admin: 10/19/24 14:38 Dose: 5 ml Documented By: [id number] Sodium Chloride (Nss) 1,000 mls @ 15 mls/hr IV .Q24H [facility] Stop: 10/20/24 13:59 Last Infusion: 10/19/24 14:13 Dose: Infused Documented By: Infusion: 10/19/24 13:50 Dose: 0 mls/hr Documented By: Admin: 10/19/24 13:48 Dose: 15 mls/hr Documented By: MG Discontinued Medications Hydromorphone HCl (Hydromorphone Inj 0.5 Mg/0.5 Ml Syr) 0.5 mg IV NOW STA Stop: 10/19/24 10:15 Last Admin: 10/19/24 10:26 Dose: 0.5 mg Documented By: MMG Ceftriaxone Sodium (Rocephin) 2,000 mg in 50 mls @ 100 mls/hr IV NOW STA Stop: 10/19/24 12:46 Last Admin: 10/19/24 13:10 Dose: 100 mls/hr Documented By: ELEANOR Ioversol (Optiray 320 100ml) 94 ml IV ONCE ONE Stop: 10/19/24 09:47 Last Admin: 10/19/24 09:46 Dose: 94 ml Documented By: JEAN Ketorolac Tromethamine (Ketorolac Tromethamine 15 Mg/Ml Vial) 15 mg IV NOW STA Stop: 10/19/24 12:27 Last Admin: 10/19/24 13:10 Dose: 15 mg Documented By: ELEANOR Ketorolac Tromethamine (Ketorolac Tromethamine 15 Mg/Ml Vial) 10 mg IV NOW ONE Stop: 10/19/24 12:28 Last Admin: 10/19/24 13:10 Dose: Not Given Documented By: ELEANOR Morphine Sulfate (Morphine Sulfate 4 Mg/Ml 1 Ml Carp\Vial) 4 mg IV NOW STA Stop: 10/19/24 08:49 Last Admin: 10/19/24 09:00 Dose: 4 mg Documented By: ELEANOR Morphine Sulfate (Morphine Sulfate 4 Mg/Ml 1 Ml Carp\Vial) 4 mg IV NOW STA Stop: 10/19/24 11:13 Last Admin: 10/19/24 11:29 Dose: 4 mg Documented By: ELEANOR Ondansetron HCl (Ondansetron Inj 2 Mg/Ml 2 Ml Vial) 4 mg IV NOW STA Stop: 10/19/24 08:49 Last Admin: 10/19/24 09:01 Dose: 4 mg Documented By: ELEANOR Medical Decision Making Medical Records Attestation: I reviewed the patient's medical records. Home Medications was personally reviewed by me Laboratory Data Attestation: I reviewed the patient's lab results. 10/19/24 08:30 10/19/24 08:30 Lab Results 10/19/24 Range/Units 08:30 WBC 14.75 H (4.8-10.8) K/ul RBC 4.70 (4.20-5.40) M/uL Hgb 14.7 (12.0-16.0) g/dl Hct 43.1 (37.0-47.0) % MCV 91.7 (80.0-100.0) fL MCH 31.3 (25.0-34.0) pg MCHC 34.1 (32.0-36.0) g/dL RDW Std Deviation 40.7 (36.4-46.3) fL RDW Coeff of Jordyn 12.1 (11.5-14.5) % Plt Count 320 (130-400) K/uL MPV 11.5 (9.4-12.4) fL Immature Gran % (Auto) 0.5 % Neut % (Auto) 82.7 % Lymph % (Auto) 9.8 % [place] % (Auto) 4.5 % Eos % (Auto) 2.0 % Baso % (Auto) 0.5 % Neut # (Auto) 12.20 H (1.40-6.50) K/uL Lymph # (Auto) 1.44 (1.20-3.40) K/uL [place] # (Auto) 0.67 H (0.11-0.59) K/uL Eos # (Auto) 0.29 (0.00-0.50) K/uL Baso # (Auto) 0.08 (0.00-0.20) K/uL Immature Gran # (Auto) 0.07 (0.01-0.20) K/uL Sodium 138 (136-145) mmol/L Potassium 3.7 (3.5-5.1) mmol/L Chloride 105 (98-107) mmol/L Carbon Dioxide 26 (21-32) mmol/L Anion Gap 7 (3-11) BUN 16 (6-23) mg/dl Creatinine 1.10 (0.6-1.2) mg/dl Est Cr Clr Drug Dosing 63.4 ml/min eGFR 72.86 BUN/Creatinine Ratio 14.5 (10-20) Glucose 108 H (70-99(Fasting)) mg/dl Calcium 9.6 (8.6-10.3) mg/dl Total Bilirubin 0.4 (0.2-1.0) mg/dl AST 16 (13-39) U/L ALT 10 (7-52) U/L Alkaline Phosphatase 63 (34-104) U/L Total Protein 7.2 (6.0-8.3) gm/dl Albumin 4.3 (3.4-5.0) gm/dl Globulin 2.9 (2.5-4.0) gm/dl Albumin/Globulin Ratio 1.5 (0.9-2) Lipase 27 (11-82) U/L HCG, Qual Negative (Negative) Urine Color Yellow Urine Appearance Cloudy A (Clear) Urine pH 5.5 (4.5-7.5) Ur Specific [place] 1.035 H (1.000-1.030) Urine Protein Trace H (Negative) Urine Glucose (UA) Negative (Negative) Urine Ketones Trace H (Negative) Urine Blood 3+ H (Negative) Urine Nitrite Negative (Negative) Urine Bilirubin Negative (Negative) Urine Urobilinogen Negative (Negative) Ur Leukocyte Esterase 1+ H (Negative) Urine WBC (Auto) >50 H (0-5) /hpf Urine RBC (Auto) >20 H (0-2) /hpf U Hyaline Cast (Auto) 3-5 H (0-2) /lpf U Epithel Cells (Auto) 11-20 H (0-2) /hpf Urine Bacteria (Auto) 2+ H (None Seen) Imaging Data Attestation: I personally reviewed and interpreted this imaging study as follows: My Impression: My interpretation of a CT with IV contrast of the abdomen and pelvis did not show evidence for acute appendicitis with symptoms of concern. CT imaging does show evidence for a 5 mm distal right ureteral calculus with moderate hydroureteronephrosis. Radiologist also makes mention of additional right renal calculi as well. Radiologist report was otherwise reviewed with concurrence. Radiologist's Impression: Abdomen/Pelvis CT 10/19/24 08:48 CT OF THE ABDOMEN AND PELVIS WITH CONTRAST CLINICAL HISTORY: Right lower quadrant abdominal pain. COMPARISON STUDY: None. TECHNIQUE: Following IV administration of 94 mL of Optiray, axial images of the abdomen and pelvis were obtained from the lung bases to the proximal femurs. Images were reviewed in the axial, sagittal, and coronal planes. IV contrast was administered without complication. Automated exposure control was utilized for the study. A dose lowering technique was utilized adhering to the principles of ALARA. CT DOSE: 452.48 mGy.cm FINDINGS: Lung bases are unremarkable. A 5 mm distal right ureteral calculus results in moderate hydronephrosis with delayed nephrogram and trace perinephric and periureteral fluid. A few right lower pole renal calculi measure up to 3 mm. There is no left hydronephrosis. No left renal calculi are identified although sensitivity is diminished on this contrast enhanced exam. Liver, spleen, adrenal glands and pancreas are unremarkable. The appendix is normal. There is trace fluid within the pelvis. The caliber and wall thickness of small and large bowel are normal. Major vasculature is patent. No lymphadenopathy. IMPRESSION: 1. 5 mm distal right ureteral calculus results in moderate hydronephrosis with delayed nephrogram. 2. Right nephrolithiasis. 3. Normal appendix. No bowel obstruction. No bowel wall thickening. 4. Trace fluid within the pelvis, likely physiologic. ACT 112: Negative or not required by law. Electronically signed by: Cody Burnette M.D. 10/19/2024 10:04 AM Prescription Drug Monitoring [place] Drug Monitoring Program reviewed and no issues identified MDM Narrative See ED Course section for further details of today's visit. The patient presents with complaint of acute and sudden onset of right lower quadrant abdominal pain and nausea. The patient's examination was certainly consistent with possible appendicitis, therefore CT imaging with IV contrast was selected. Labs were reviewed to show a moderate leukocytosis without any other major electrolyte abnormalities, evidence for acute kidney injury or electrolyte abnormality. Serum was also negative. CT imaging showed a 5 mm distal right ureteral calculus with moderate hydroureteronephrosis. The patient did require 3 rounds of IV analgesics without decent pain control. The case was discussed with [facility], who recommended a ureteral stent placement for decompression. Not knowing when they could complete the procedure, they did recommend hospitalist consultation, which was discussed with Dr. Vergara. Impression Right distal ureteral calculus, Right nephrolithiasis, Hydronephrosis with obstructing calculus Discharge Plan Visit Data Chief Complaint: Abdominal Pain Stated Complaint: SEVERE LOWER RT ABD PAIN ED Provider: Kristopher Hamlin ED Midlevel Provider: Jorge Luis Koch Discharge Problem: Right distal ureteral calculus, Right nephrolithiasis, Hydronephrosis with obstructing calculus Patient Disposition: Admitted As Inpatient Discharge Instructions Interventions: ED Discharge Assessment Last Done: 10/19/24 13:17 Forms Stand Alone Forms: My [facility] Prescriptions Prescriptions: New oxycodone 5 mg tablet 5 mg PO Q6H PRN (Reason: pain) Qty: 10 0RF tamsulosin [Flomax] 0.4 mg capsule 0.4 mg PO DAILY Qty: 30 0RF oxybutynin chloride 5 mg tablet extended release 24hr 5 mg PO DAILY Qty: 30 0RF No Action norgestimate-ethinyl estradiol [Sheron] 0.25-35 mg-mcg Tablet 1 tab PO DAILY clonidine HCl 0.1 mg Tablet 0.1 mg PO DAILY dextroamphetamine-amphetamine 10 mg capsule,extended release 24hr 10 mg PO DAILY quetiapine 50 mg tablet 50 mg PO DAILY Referrals Referrals: [facility] [Primary Care Provider] -
--- NOTE | 2024-10-19 15:42 | Fluoroscopy Report ---
FL retrograde includes kub CLINICAL HISTORY: CYSTO RIGHT STENT COMPARISON STUDY: CT of the abdomen and pelvis performed earlier today. FLUOROSCOPY TIME: 3 seconds. Ka,r: 0.4248 mGy FLUOROSCOPIC IMAGES: 2 FINDINGS: Fluoroscopy was provided during right retrograde pyelogram with right ureteral stent placem ent. The proximal aspect of the stent is within the right renal pelvis. IMPRESSION: Fluoroscopy provided during right retrograde pyelogram with right ureteral stent placeme nt. ACT 112: Negative or not required by law. Electronically signed by: Cody Burnette M.D. 10/19/2024 3:40 PM
[2024-10-19] MEDS ORDERED: ACETAMINOPHEN 325 MG TAB PO PRN (16:42)
[2024-10-19] MEDS ORDERED: ONDANSETRON INJ 2 MG/ML 2 ML VIAL IV PRN (16:42)
[2024-10-19] MEDS ORDERED: KETOROLAC TROMETHAMINE 15 MG/ML VIAL IV PRN (16:42)
[2024-10-19 17:29] LABS: Albumin Globulin Ratio 1.4 (0.9-2); Albumin Level 4.1 gm/dl (3.4-5.0); BUN Creatinine Ratio 15.2 (10-20); Bilirubin,Total 0.4 mg/dl (0.2-1.0); Calcium 9.5 mg/dl (8.6-10.3); Creatinine Clr Calc Pharmacy 75.9 ml/min; Potassium 4.5 mmol/L (3.5-5.1); Total Protein 7.1 gm/dl (6.0-8.3)
[2024-10-19 17:46] LABS: Hematocrit (blood only) 43.1 % (37.0-47.0); Hemoglobin 14.5 g/dl (12.0-16.0); Mean Corpuscular Hgb Conc 33.6 g/dL (32.0-36.0); Mean Corpuscular Volume 89.2 fL (80.0-100.0); Mean Platelet Volume 11.9 fL (9.4-12.4); Platelet Count 331 K/uL (130-400); RDW Standard Deviation 39.2 fL (36.4-46.3); Red Blood Count 4.83 M/uL (4.20-5.40); White Blood Count 18.65 K/ul (4.8-10.8)
[2024-10-19 18:24] LABS: Basophils # (auto) 0.05 K/uL (0.00-0.20); Basophils % (auto) 0.3 %; Eosinophils # (auto) 0.01 K/uL (0.00-0.50); Eosinophils % (auto) 0.1 %; Immature Granulocytes # (auto) 0.08 K/uL (0.01-0.20); Immature Granulocytes % (auto) 0.4 %; Lymphocytes # (auto) 0.82 K/uL (1.20-3.40); Lymphocytes % (auto) 4.4 %; Monocytes % (auto) 1.1 %; Neutrophils # (auto) 17.49 K/uL (1.40-6.50); Neutrophils % (auto) 93.7 %
[2024-10-19 18:28] VITALS: BP 109/72; PULSE 67; RESP 14; O2SAT 96
--- NOTE | 2024-10-19 19:32 | Discharge Summary ---
Discharge Summary Date of Service October 19, 2024 Principal Dx & Hospital Course #1 = Principal Diagnosis (1) Right distal ureteral calculus: Acute onset of RUQ abdominal/flank pain that woke her from sleep at 4 AM on 10/19 A/P CT revealed 5 mm distal right ureteral calculus with moderate hydronephrosis Urology consult appreciated Plan for stent placement on the evening of 10/[address] Hughes N.p.o. until then Acetaminophen and Toradol as needed for pain IV antiemetics PRN Tamsulosin 0.4 mg x 1 Urine strainer (2) UTI (urinary tract infection): UA positive on arrival with some concern for infected stone Leukocytosis at 14.75 with a neutrophil predominance No prior UCx on record Ceftriaxone 2000 mg IV q24h Follow current UCx Follow a.m. labs (3) Bipolar disorder: Patient reports she no longer takes lamotrigine (4) Anxiety: Continue home medications (5) Depression: (6) Hydronephrosis, right: Plan Disposition: [facility] Full code N.p.o. prior to stent, then advance to regular diet VTE PPx: Low risk Admission HPI Per Admitting Provider Belia is a 23-year-old female with PMH of anxiety, depression, drug overdose, and bipolar disorder. She presented on 10/19 for right lower quadrant abdominal pain that began around 4 AM. The pain woke her from sleep this morning. She reports it is in the RLQ of her abdomen with radiation around the flank. No radiation to the lower back. She rates the pain 9/10 at worst, and 2/10 after receiving pain medicine in the ED. Deep breaths initially made the pain worse, but she reports this has subsided. She characterizes the pain as dull at baseline with intermittent sharpness. No prior history of kidney stones. Patient took 2 ibuprofen (200 mg) prior to coming in. No recent change in diet, but she did eat different foods for Thanksgiving recently. She reports she does not drink enough water daily. She does have a history of UTIs, but has not had one since she was much younger. Additional symptoms include nausea; no vomiting. No blood in the urine or burning with urination. She does report that she was not feeling well last night, but does not believe she had a fever. She did not take her regular morning medicines today; no recent change in medications, however s he says she no longer takes lamotrigine. No prior history of abdominal surgeries; patient still has appendix and gallbladder. She has no family history of kidney stones to her knowledge. She denies a chance of ; reports that she is currently on her menstrual period. Patient reports that she did have a glass of wine last night. She denies smoking, tobacco use, recreational drug use. NKDA; patient denies penicillin allergy. Patient is mildly hypertensive at 143/95 at time of admission; vitals otherwise stable. ED course: Ceftriaxone 2000 mg IV Morphine sulfate 4 mg IV x 2 Hydromorphone 0.5 mg IV Zofran 4 mg IV ROS: Patient endorses lightheadedness from pain, RLQ abdominal pain, and nausea. Patient denies fever, chills, night-sweats, chest pain, chest palpitations, SOB, cough, vomiting, diarrhea, blood in the urine, burning with urination, or change in urinary habits. Discharge Plan Discharge Items Patient Disposition: Home - Self-Care Reason For Visit: RIGHT-SIDED NEPHROLITHIASIS, UTI Discharge Diagnosis: Kidney stone (ureterolithiasis) Urinary tract infection Activity: Resume your previous activity Non-emergency contact: Primary Care Provider Call non-emergency contact if: you have any medication questions and your symptoms worsen Follow-up/Referrals: [facility] [Primary Care Provider] - (No follow up required) Joni Hughes MD [Physician] - (Please call for follow up appointment) Diet: Regular Addtl Attending Provider Instructions: You were admitted to [facility] on October 19 due to kidney stone pain and possible UTI. You were treated with a ureteral stent and ceftriaxone (antibiotic). You are now medically stable for discharge and recommend continuing on Bactrim for 5 days to cover for urinary tract infection. Please continue with oxybutynin and tamsulosin as prescribed and directed by urology. Please follow up with urology as directed for stent removal. Use acetaminophen 1st line, ibuprofen 2nd line and oxycodone 3rd line for pain. No changes to your chronic medications. Pending Studies at Discharge: No Stand-Alone Forms: My [facility], Smoking Cessation Medications and DC Order Prescriptions: New oxycodone 5 mg tablet 5 mg PO Q6H PRN (Reason: pain) Qty: 10 0RF tamsulosin [Flomax] 0.4 mg capsule 0.4 mg PO DAILY Qty: 30 0RF oxybutynin chloride 5 mg tablet extended release 24hr 5 mg PO DAILY Qty: 30 0RF sulfamethoxazole-trimethoprim [Bactrim DS] 800-160 mg tablet 1 tab PO BID 5 Days Qty: 10 0RF Continued norgestimate-ethinyl estradiol [Sheron] 0.25-35 mg-mcg Tablet 1 tab PO DAILY clonidine HCl 0.1 mg Tablet 0.1 mg PO DAILY dextroamphetamine-amphetamine 10 mg capsule,extended release 24hr 10 mg PO DAILY quetiapine 50 mg tablet 50 mg PO HS Discharge Orders: Discharge Order (Routine); Ordered 10/19/24 Ordered By: Joseph Vergara Admission Data Admit Date/Time: 10/19/24 13:06 Attending Provider: Joseph Vergara Admit Provider: Joseph Vergara Primary Care Provider: [facility] Other Providers: Sivakumar Andrade; Joseph Vergara Hospital Stay Data Consultations 10/19/24 12:27 Consult Urology Stat ED Decision to Admit Stat Procedures Performed Operation Date: 10/19/24 19:30 Actual Procedures p Cystoscopy, Right Stent Placement(Right) - Joni Hughes MD Diagnostic Imagining Performed 10/19/24 [place] retrograde includes kub Routine 10/19/24 08:48 CT abd pelvis IV con only Stat Pending Results Patient Have Any Pending Studies at Discharge: No Discharge Instructions Given to Patient (Per Discharging Provider) You were admitted to [facility] on October 19 due to kidney stone pain and possible UTI. You were treated with a ureteral stent and ceftriaxone (antibiotic). You are now medically stable for discharge and recommend continuing on Bactrim for 5 days to cover for urinary tract infection. Please continue with oxybutynin and tamsulosin as prescribed and directed by urology. Please follow up with urology as directed for stent removal. Use acetaminophen 1st line, ibuprofen 2nd line and oxycodone 3rd line for pain. No changes to your chronic medications. Coding Diagnoses Right distal ureteral calculus N20.1 UTI (urinary tract infection) N39.0 Bipolar disorder F31.9 Anxiety F41.9 Depression F32.A Hydronephrosis, right N13.30
[2024-10-19] MEDS ORDERED: QUEtiapine FUMARATE 25 MG TABLET PO SCH (21:00)
[2024-10-20] MEDS ORDERED: QUEtiapine FUMARATE 25 MG TABLET PO SCH (09:00)
[2024-10-20] MEDS ORDERED: cloNIDine HCL 0.1 MG TAB PO SCH (09:00)
[2024-10-20] MEDS ORDERED: NORGESTIMATE/ETHINYL ESTRAD 0.25/0.035MG DSPK PO SCH (09:00)
[2024-10-20] MEDS ORDERED: DEXTROAMPHETAMINE/AMPHETAMINE ER 10 MG CAP PO SCH (09:00)
[2024-10-20] MEDS ORDERED: cefTRIAXone SODIUM 2,000 MG/50 ML BAG IV SCH (13:15)
== END 2024-10-19 20:13 | disposition home or self-care (01) | DRG 661 ==
LOC: ED 08:15 → 3E 13:06